=== PATIENT | male | born 1970 | race Caucasian/White ===

== ENCOUNTER 2017-11-02 11:03 | Emergency (ER) | payer OTHER ==
[~2017-11-02] VITALS: Ht 172.7 cm; Wt 78.0 kg
[2017-11-02 13:16] LABS: ABSOLUTE BASOPHIL COUNT 0.1 /CUMM (0.0-0.2); ABSOLUTE EOSINOPHIL COUNT 0.1 /CUMM (0.0-0.7); ABSOLUTE GRANULOCYTE CT 9.1 /CUMM (1.4-6.5); ABSOLUTE LYMPH COUNT 1.9 /CUMM (1.2-3.4); ABSOLUTE MONOCYTE COUNT 1.3 /CUMM (0.10-0.60); BASOPHIL % 0.6 % (0.0-2.0); EOSINOPHIL % 0.7 % (0-5); HEMATOCRIT 36.9 % (42-52); MEAN CORPUSCULAR HGB 20.1 PG (27.0-31.0); MEAN CORPUSCULAR HGB CONC 31.5 G/DL (33.0-37.0); MEAN PLATELET VOLUME 7.4 FL (7.4-10.4); PLATELET COUNT 456 /CUMM (130-400); RBC DISTRIBUTION WIDTH 16.5 % (11.5-14.5); RED BLOOD CELL CT 5.78 /CUMM (4.70-6.10); WHITE BLOOD CELL COUNT 12.5 /CUMM (4.8-10.8)
[2017-11-02 13:39] LABS: MEAN CORPUSCULAR VOLUME 63.8 FL (80.0-94.0)
--- NOTE | 2017-11-02 17:00 | ED UPPER/LOWER EXTREMITY COMPL ---
History of Present Illness General Chief Complaint: General Adult Stated Complaint: SENT BY PMD FOR ABNORMAL LABS Source: patient Exam Limitations: no limitations Vital Signs & Intake/Output Vital Signs & Intake/Output Vital Signs Date Time Temp Pulse Resp B/P B/P Pulse O2 O2 Flow FiO2 Mean Ox Delivery Rate 11/02 1134 96.9 83 18 153/92 97 Room Air Allergies Coded Allergies: No Known Allergies (11/02/17) Reconcile Medications Indomethacin 50 MG CAPSULE 1 CAP PO TID PRN ARTHRITIS with food Triage Note: PT SENT IN TO ER BY PCP DR. MATTHEWS FOR SEPTIC WORKUP SECONDARY TO ELEVATED WBC, RIGHT SHOULDER, RIGHT FOOT, AND RIGHT KNEE PAIN/SWELLING. MD ? SEPTIC JOINT. STATES HAS BEEN TAKING ANTI-INFLAMMATORY WITH RELIEF. DENIES INJURY OR TRAUMA Triage Nurses Notes Reviewed? yes HPI: patient presents for evaluation of right shoulder knee and ankle pain that began Tuesday. Pt states similar to prior episode of rheumatic fever. pt saw his pmd and told to go to ED due to inability to weight bear on right side because of pain. pain is a constant aching stiffness, 8/10 that improves with prescription pain medications. Past History Travel History Traveled to [place] past 21 day No Medical History Any Pertinent Medical History? see below for history Surgical History Surgical History: non-contributory Psychosocial History What is your primary language Spanish Tobacco Use: Quit >30 days ago ETOH Use: denies use Illicit Drug Use: denies illicit drug use Family History Hx Contributory? No Review of Systems Review of Systems Constitutional: Reports: no symptoms. EENTM: Reports: no symptoms. Respiratory: Reports: no symptoms. Cardiovascular: Reports: no symptoms. Gastrointestinal/Abdominal: Reports: no symptoms. Genitourinary: Reports: no symptoms. Musculoskeletal: Reports: see HPI. Skin: Reports: no symptoms. Neurological/Psychological: Reports: no symptoms. Hematologic/Endocrine: Reports: no symptoms. Immunological: Reports: no symptoms. All Other Systems: Reviewed and Negative Physical Exam Physical Exam General Appearance: see below Comments: Gen.: Well-nourished, well-developed, no acute respiratory distress. Head: Normocephalic, atraumatic. Eyes: Normal inspection bilaterally Ears: Normal inspection bilaterally Nose: Normal inspection Throat/mouth : Moist mucosa Neck: Supple, full range of motion, no goiter Heart: Regular rate and rhythm, no murmurs rubs or gallops Lungs: Clear to auscultation bilaterally with normal air entry Chest: Nontender Back: Normal range of motion Abdomen: Soft, nontender, nondistended, normal bowel sounds Extremities: right shoulder: pain with ROM without erythema, ecchy or sts. right knee: pain with ROM without erythema, ecchy or sts. right ankle: 1+ pitting edema with mild/mod warmth,pain with ROM without erythema, ecchy or sts. All extremities are neurovascularly intact distally. Neurologic: Cranial nerves grossly intact, speech is clear Skin: warm and dry Psychiatric: Calm, cooperative, no apparent delusions or hallucinations Progress Differential Diagnosis: lYME DISEASE, AUTOIMMUNE DISEASE, RHEUMATOID ARTHRITIS, SEPTIC ARTHRITIS Plan of Care: Orders Procedure Date/time Status Add-on Test (ER Only) 11/02 1303 Active URIC ACID 11/02 1302 Complete WESTERGREN SED RATE 11/02 1302 Complete COMPREHENSIVE METABOLIC PANEL 11/02 1302 Complete CBC WITHOUT DIFFERENTIAL 11/02 1302 Complete Laboratory Tests 11/02/17 1309: Anion Gap 12, Estimated GFR > 60, BUN/Creatinine Ratio 12.0, Glucose 104 H, Uric Acid 10.2 H, Calcium 10.3 H, Total Bilirubin 0.7, AST 24, ALT 36, Alkaline Phosphatase 61, Total Protein 7.8, Albumin 4.3, Globulin 3.5, Albumin/ Globulin Ratio 1.2, CBC w Diff NO MAN DIFF REQ, RBC 5.78, MCV 63.8 L, MCH 20.1 L, MCHC 31.5 L, RDW 16.5 H, MPV 7.4, Gran % 73.0, Lymphocytes % 15.5 L, Monocytes % 10.2 H, Eosinophils % 0.7, Basophils % 0.6, Absolute Granulocytes 9.1 H, Absolute Lymphocytes 1.9, Absolute Monocytes 1.3 H, Absolute Eosinophils 0.1, Absolute Basophils 0.1, ESR Westergren 37 H 11/02/17 1303: ESR Westergren Cancelled Departure Departure Disposition: HOME OR SELF CARE Condition: Stable Clinical Impression Primary Impression: Polyarthritis Secondary Impressions: Vitamin D deficiency Referrals: Rosario ESTEBAN,Joe Church (PCP/Family) Additional Instructions: Discontinue your current anti-inflammatory (diclofenac) and begin taking indomethacin. Follow-up with your primary care physician on Tuesday for reevaluation. Return if any concerns or sudden worsening. Thank you for choosing the [facility] for your care. It was a pleasure to serve you today. Moe Jenkins M.D. [facility] Departure Forms: Customer Survey General Discharge Information Prescriptions: Current Visit Scripts Indomethacin 1 CAP PO TID PRN ARTHRITIS #30 CAP with food Cholecalciferol (Vitamin D3) (Vitamin D) 1 TAB PO DAILY #30 TAB
[2017-11-02] MEDS ORDERED: INDOMETHACIN50 M1 PO (17:24)
[2017-11-02] MEDS ORDERED: VITAMIN D400 UNI2 PO (17:29)
[2017-11-02 17:56] VITALS: BP 150/93
[2017-11-02] MEDS ORDERED: DAILY MULTIPLE1 EACH PO (17:57)
== END 2017-11-02 18:14 ==
LOC: ERH 11:03
PROVIDERS: Physician Assistant Medical
DX: M13.0 Polyarthritis, unspecified (principal); E55.9 Vitamin D deficiency, unspecified